=== PATIENT | male | born 1950 | race Caucasian/White ===

== ENCOUNTER 2019-03-26 09:59 | Emergency (ER) | payer MEDICARE, MEDICAID, SELFPAY ==
--- NOTE | ~2019-03-26 | XR_ITS ---
XR hand LT min 3V DATE: 03/26/2019 10:45 INDICATION: Tool box lid slammed on hand. Pain in the metacarpal area. TECHNIQUE: 3 views COMPARISON: None FINDINGS: There is severe osteoarthritic change at the first carpometacarpal joint. There is chronic deformity of the second metatarsal head with associated secondary osteoarthritis at the second metaca rpophalangeal joint as well as osteoarthritis at the first and third metacarpophalangeal joints. Oste oarthritic changes noted at some of the interphalangeal joints as well. There are multiple benign cysts of the carpal bones No fracture or dislocation, periosteal reaction or bone destruction is detected. IMPRESSION: Polyarticular osteoarthritis No fracture or dislocation is detected Reviewed, dictated and finalized at location [facility]
[2019-03-26 10:01] VITALS: BP 166/76; PULSE 100; RESP 18; TEMP 36.5; O2SAT 100
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
[2019-03-26 10:32] VITALS: BP 166/76; PULSE 100; RESP 18; TEMP 37.1; O2SAT 98
[2019-03-26 12:19] VITALS: BP 138/78; PULSE 78; RESP 16; O2SAT 100
== END 2019-03-26 12:20 | disposition home or self-care (01) ==
PROVIDERS: Emergency Provider Emergency Medicine; PCP Family Medicine
DX: I48.91 Unspecified atrial fibrillation (principal); I10 Essential (primary) hypertension; Z87.891 Personal history of nicotine dependence; S60.222A Contusion of left hand, initial encounter; W20.8XXA Other cause of strike by thrown, projected or falling object, initial encounter
CPT/HCPCS: 73130; 99283; A4565